=== PATIENT | female | born 1980 | race African-American/Black ===

== ENCOUNTER 2020-07-13 11:09 | Emergency (ER) | payer OTHER ==
[~2020-07-13] VITALS: Ht 180.3 cm; Wt 81.2 kg
[2020-07-13 11:18] VITALS: Ht 180.3 cm; Wt 81.2 kg
[2020-07-13 11:54] LABS: BASOPHIL % 1.2 % (0.2-1.3); PLATELET COUNT 267 x10^3mcL (179-408)
[2020-07-13 12:00] LABS: RED CELL DISTRIBUTION WIDTH 14.6 % (12.3-17.7)
[2020-07-13 12:31] LABS: UA SPECIFIC GRAVITY 1.015 (1.005-1.035); microscopic required? YES; urine erythrocyte 3+ (NEGATIVE)
[2020-07-13 14:48] VITALS: BP 128/93
== END 2020-07-13 14:48 | disposition home or self-care (01) ==
LOC: ED 11:09
PROVIDERS: Emergency Medicine
DX: N93.8 Other specified abnormal uterine and vaginal bleeding (principal); N39.0 Urinary tract infection, site not specified

== ENCOUNTER 2020-07-29 13:11 | Emergency (ER) | payer OTHER ==
[~2020-07-29] VITALS: Ht 180.3 cm; Wt 81.6 kg
[2020-07-29 13:19] VITALS: Ht 180.3 cm; Wt 81.6 kg
[2020-07-29 14:50] LABS: BASOPHIL % 0.6 % (0.2-1.3); PLATELET COUNT 317 x10^3mcL (179-408); RED CELL DISTRIBUTION WIDTH 14.3 % (12.3-17.7)
[2020-07-29 15:28] LABS: UA SPECIFIC GRAVITY 1.015 (1.005-1.035); microscopic required? YES; urine erythrocyte 3+ (NEGATIVE)
[2020-07-29 16:44] VITALS: BP 140/95
== END 2020-07-29 16:45 | disposition home or self-care (01) ==
LOC: ED 13:11
PROVIDERS: Emergency Medicine
DX: N93.8 Other specified abnormal uterine and vaginal bleeding (principal); E28.2 Polycystic ovarian syndrome; I10 Essential (primary) hypertension